=== PATIENT | female | born 2000 | race Caucasian/White ===

== ENCOUNTER 2020-09-02 20:26 | Emergency (ER) | payer OTHER | END 2020-09-02 22:06 | disposition home or self-care (01) | LOC: ER1 20:26 | DX: F41.1 Generalized anxiety disorder (principal); J45.909 Unspecified asthma, uncomplicated; Z88.0 Allergy status to penicillin | CPT/HCPCS: 71045; 93005; 99283; Q0177 ==

== ENCOUNTER 2021-08-05 20:12 | Emergency (ER) | payer OTHER ==
[2021-08-05 21:03] LABS: HEMOGLOBIN 12.9 gm/dl (12.3-15.3); RED BLOOD COUNT 4.27 M/UL (4.00-5.10); WHITE BLOOD COUNT 8.2 K/UL (4.5-11.0)
[2021-08-05 21:25] LABS: BUN/CREATININE RATIO 18 (0-10)
[2021-08-05] MEDS ORDERED: AZITHROMYCIN250 MG PO (21:41)
== END 2021-08-05 22:45 | disposition home or self-care (01) ==
LOC: ER1 20:12
PROVIDERS: Emergency Medicine
DX: H66.91 Otitis media, unspecified, right ear (principal); R51.9 Headache, unspecified; F41.9 Anxiety disorder, unspecified; E87.6 Hypokalemia
CPT/HCPCS: 70450; 80053; 82550; 82553; 84484; 84703; 85025; 85379; 93005; 99284

== ENCOUNTER 2021-12-10 20:19 | Emergency (ER) | payer OTHER ==
[~2021-12-10 20:19] MED LIST: AZITHROMYCIN250 MG PO
== END 2021-12-10 22:29 | disposition left against medical advice (07) ==
LOC: ER1 20:19
DX: Z53.21 Procedure and treatment not carried out due to patient leaving prior to being seen by health care provider (principal)